=== PATIENT | female | born 1980 | race American Indian/Alaskan Native ===

== ENCOUNTER 2020-05-01 06:50 | Day surgery (SDC) | payer MEDICAID, OTHER ==
[~2020-05-01] VITALS: Ht 162.6 cm; Wt 72.7 kg
[~2020-05-01 06:50] MED LIST: FLO0.4C PO; HYDR-4353 PO; HYDR-4383 PO; KETO10TA2 PO; ONDA8TAB6 PO; ZOF4T PO
[2020-05-01 07:00] VITALS: BP 140/68
[2020-05-01] MEDS ORDERED: METF-438 PO (07:09)
[2020-05-01] MEDS ORDERED: LEVO75TA PO (07:10)
[2020-05-01] MEDS ORDERED: METF750T46 PO (07:11)
[2020-05-01] MEDS ORDERED: OXYC-511 PO (07:11)
[2020-05-01] MEDS ORDERED: POLY119P2 PO (07:12)
[2020-05-01] MEDS ORDERED: IBUP-1985 PO (07:12)
[2020-05-01] MEDS ORDERED: DOCU-148 PO (07:13)
[2020-05-01] MEDS ORDERED: [UNRECOGNIZED DRUG - OTHER] (07:13)
[2020-05-01] MEDS ORDERED: CHOL400T57 PO (07:14)
[2020-05-01] MEDS ORDERED: LACT1CAP65 PO (07:14)
[2020-05-01] MEDS ORDERED: MIDAZolam 1mg/ml 10ml vial ONE (07:18)
[2020-05-01] MEDS ORDERED: LIDOcaine Viscous 15ml cup ONE (07:19)
[2020-05-01] MEDS ORDERED: fentaNYL/PF 50MCG/1 ML 2ML syringe ONE ×2 (07:19→08:23)
[2020-05-01 09:02] VITALS: BP 129/61
[2020-05-01 09:12] VITALS: BP 108/53
[2020-05-01 09:22] VITALS: BP 109/54
[2020-05-01 09:32] VITALS: BP 105/58
== END 2020-05-01 09:50 | disposition home or self-care (01) ==
LOC: GI LAB 06:50
PROVIDERS: ATTEND Internal Medicine Gastroenterology
DX: K59.00 Constipation, unspecified (principal); K58.9 Irritable bowel syndrome, unspecified; R10.13 Epigastric pain; K29.50 Unspecified chronic gastritis without bleeding; K21.0 Gastro-esophageal reflux disease with esophagitis
CPT/HCPCS: 43239; 45380; 99152; 99153; J2250; J3010; J7040; A4620

== ENCOUNTER 2022-11-17 14:20 | Emergency (ER) | payer MEDICAID, OTHER ==
[~2022-11-17] VITALS: Ht 162.6 cm; Wt 72.7 kg
[~2022-11-17 14:20] MED LIST changes: +CHOL400T57 PO; +DOCU-148 PO; -FLO0.4C PO; -HYDR-4353 PO; -HYDR-4383 PO; +IBUP-1985 PO; -KETO10TA2 PO; +LACT1CAP65 PO; +LEVO75TA PO; +METF750T46 PO; -ONDA8TAB6 PO; +OXYC1TAB17 PO; +POLY119P2 PO; -ZOF4T PO; +[UNRECOGNIZED DRUG - OTHER]
[2022-11-17 14:51] LABS: BASOPHILS % (AUTO) 0.5 % (0-1); EOSINOPHILS # (AUTO) 0.2 X10'3 (0-0.9); EOSINOPHILS % (AUTO) 2.3 % (0-6); HEMATOCRIT 45.4 % (35.0-45.0); HEMOGLOBIN 15.5 g/dl (12.0-16.0); LYMPHOCYTES # (AUTO) 3.4 X10'3 (1.1-4.8); LYMPHOCYTES % (AUTO) 35.6 % (21-51); MEAN CORPUSCULAR HEMOGLOBIN 31.9 PG (27.0-31.0); MEAN CORPUSCULAR HGB CONC 34.2 g/dL (33.0-36.5); MEAN CORPUSCULAR VOLUME 93.3 FL (78-98); MEAN PLATELET VOLUME 7.9 FL (7.4-10.4); MONOCYTES # (AUTO) 0.6 X10'3 (0-0.9); MONOCYTES % (AUTO) 6.7 % (2-12); NEUTROPHILS # (AUTO) 5.3 X10'3 (1.8-7.7); NEUTROPHILS % (AUTO) 54.9 % (42-75); PLATELET COUNT 250 X10'3 (140-440); RED BLOOD COUNT 4.87 X10'6 (4.20-5.60); RED CELL DISTRIBUTION WIDTH 12.8 % (11.5-14.5); WHITE BLOOD COUNT 9.6 X10'3 (4.5-11.0)
[2022-11-17 14:55] LABS: CLARITY,URINE CLOUDY (Clear); COLOR,URINE YELLOW (Yellow); GLUCOSE, URINE NEGATIVE (Neg); KETONES,URINE NEGATIVE (Neg); LEUKOCYTE ESTERASE ,URINE NEGATIVE (Neg); OCCULT BLOOD,URINE SMALL (Neg); PROTEIN,URINE NEGATIVE (Neg); UROBILINOGEN,URINE 0.2 E.U/dL (0.2-1.0)
[2022-11-17 14:56] LABS: URINE HCG NEGATIVE (NEG)
[2022-11-17 15:04] LABS: UA COLLECTION TYPE CLN CATCH MIDSTREAM
[2022-11-17 15:08] LABS: ALANINE AMINOTRANSFERASE 26 U/L (12-78); ALBUMIN 4.1 G/DL (3.4-5.0); ALBUMIN/GLOBULIN RATIO 1.1 (1.1-1.5); ALKALINE PHOSPHATASE 91 IU/L (46-116); ANION GAP 7 (8-16); ASPARTATE AMINO TRANSFERASE 19 U/L (10-37); BILIRUBIN,TOTAL 0.3 MG/DL (0.1-1.0); BLOOD UREA NITROGEN 10 MG/DL (7-18); BUN/CREATININE RATIO 15.9 (6.6-38.0); CALCIUM 8.6 MG/DL (8.5-10.1); CHLORIDE 103 MMOL/L (99-107); CREATININE 0.63 MG/DL (0.40-0.90); GLUCOSE 94 MG/DL (70-104); LIPASE 119 U/L (73-393); POTASSIUM 3.8 MMOL/L (3.5-5.1); SODIUM 139 MMOL/L (135-145); TOTAL CARBON DIOXIDE 29.5 MMOL/L (24-32); TOTAL PROTEIN 7.7 G/DL (6.4-8.2); eGFR > 90 ML/MIN
[2022-11-17 15:08] LABS: NITRITES, URINE NEGATIVE (Neg)
[2022-11-17 15:11] LABS: BACTERIA,URINE 1+ /HPF (Neg); MUCUS STRANDS MODERATE /LPF (Neg); SQUAMOUS EPITHELIAL CELL,UR MANY /LPF (FEW)
[2022-11-17 15:17] VITALS: BP 144/88
== END 2022-11-17 15:47 | disposition home or self-care (01) ==
LOC: ER 14:20
DX: S39.012A Strain of muscle, fascia and tendon of lower back, initial encounter (principal); K40.90 Unilateral inguinal hernia, without obstruction or gangrene, not specified as recurrent; R10.32 Left lower quadrant pain; X58.XXXA Exposure to other specified factors, initial encounter; Y93.89 Activity, other specified; Y92.89 Other specified places as the place of occurrence of the external cause; Y99.8 Other external cause status
CPT/HCPCS: 36415; 80053; 81001; 81025; 83690; 85025; 99283